=== PATIENT | male | born 1980 | race Caucasian/White ===

== ENCOUNTER 2019-06-10 14:29 | Emergency (ER) | payer MEDICAID ==
[~2019-06-10] VITALS: Ht 170.2 cm; Wt 79.4 kg
[2019-06-10 15:28] VITALS: BP_SYST 139
--- NOTE | 2019-06-10 15:36 | NUR ---
Patient triaged and placed in waiting room. VSS and patient appears in no acute distress at this time. Accompanied by 2 program workers, awaiting available bed, and MD notified of need for MSE.
--- NOTE | 2019-06-10 16:28 | NUR ---
Patient to ER bed 8 to gown for evaluation. Side rails up. Report given to MANUEL Ray.
--- NOTE | 2019-06-10 16:35 | NUR ---
pt was a adult day care where he sustained a fall and lac to the back of the head. negative KO. Pt is awake, however, is nonverbal d/t autism.
--- NOTE | 2019-06-10 16:50 | NUR ---
ER at bedside examining patient.
--- NOTE | 2019-06-10 17:00 | NUR ---
Patient given written and verbal discharge instructions and verbalizes understanding. ER MD discussed with patient the results and treatment provided. Patient in stable condition. ID arm band removed. Patient educated on pain management and to follow up with PMD. Pain Scale 0/10. Opportunity for questions provided and answered. Medication side effect fact sheet provided.
== END 2019-06-10 17:00 | disposition home or self-care (01) ==
LOC: SED 14:29
DX: S00.03XA Contusion of scalp, initial encounter (principal); G40.909 Epilepsy, unspecified, not intractable, without status epilepticus; W18.39XA Other fall on same level, initial encounter; Y93.89 Activity, other specified; Y92.210 Daycare center as the place of occurrence of the external cause; Y99.8 Other external cause status
CPT/HCPCS: 99281